=== PATIENT | female | born 1970 | race Caucasian/White ===

== ENCOUNTER 2018-07-17 15:08 | Emergency (ER) | payer OTHER, BC ==
[2018-07-17 15:26] VITALS: BP 147/93; PULSE 87; TEMP 97.7; BMI 28.6
[2018-07-17] MEDS ORDERED: morphine CARPU-JECT 4 MG/1 ML DISP.SYRIN IVPUSH ONE (15:52)
[2018-07-17] MEDS ORDERED: morphine SULFATE 4 MG/ML VIAL ONE (15:56)
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
== END 2018-07-17 17:14 | disposition home or self-care (01) ==
LOC: JER 15:08
PROC: 3E033NZ Introduction of Analgesics, Hypnotics, Sedatives into Peripheral Vein, Percutaneous Approach (ICD-10-PCS; principal; 2018-07-17)
DX: M25.512 Pain in left shoulder (principal); Y04.2XXA Assault by strike against or bumped into by another person, initial encounter; Y93.89 Activity, other specified; Y92.240 Courthouse as the place of occurrence of the external cause; Y99.0 Civilian activity done for income or pay; I10 Essential (primary) hypertension
CPT/HCPCS: 73030-TC-LT-FY; 73060-TC-LT-FY; 84703; 99282-25

== ENCOUNTER 2021-03-02 17:23 | Emergency (ER) | payer OTHER, BC ==
[2021-03-02 17:41] VITALS: BP 173/117; PULSE 101; TEMP 99.4; BMI 28.2
== END 2021-03-02 18:33 | disposition home or self-care (01) ==
LOC: FER 17:23
DX: S46.911A Strain of unspecified muscle, fascia and tendon at shoulder and upper arm level, right arm, initial encounter (principal)
CPT/HCPCS: 73030-TC-RT-FY; 99284-25

== ENCOUNTER 2022-04-24 19:17 | Emergency (ER) | payer OTHER ==
[2022-04-24 19:32] VITALS: BP 169/106; PULSE 101; RESP 18; TEMP 98.9; BMI 26.9
== END 2022-04-24 20:06 | disposition home or self-care (01) ==
LOC: FER 19:17
DX: Z77.21 Contact with and (suspected) exposure to potentially hazardous body fluids (principal)
CPT/HCPCS: 99282-25